=== PATIENT | male | born 1995 | race Caucasian/White ===

== ENCOUNTER 2024-04-20 09:33 | Outpatient (RCR) | payer OTHER, SELFPAY ==
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
== END 2024-04-23 08:50 ==
LOC: OT 09:33
PROVIDERS: Family Provider Nurse Practitioner Family; PCP Nurse Practitioner Family; Referring Provider Nurse Practitioner Family; Visit Provider Nurse Practitioner Family
DX: S69.81XD Other specified injuries of right wrist, hand and finger(s), subsequent encounter (principal)